=== PATIENT | female | born 1990 | race Hispanic/Latino ===

== ENCOUNTER 2020-12-03 17:24 | Inpatient (IN) | payer BC ==
[2020-12-03 18:04] VITALS: BMI 34.0
[2020-12-03] MEDS ORDERED: hydrALAZINE 20 MG/ML VIAL SLOW IVP PRN ×2 (18:23→19:19)
[2020-12-03 18:41] LABS: Bilirubin Neg (Negative); Blood, Urine 50 (Negative); Clarity Cloudy (Clear); Glucose, Urine (Dipstick) Normal (Negative); Ketone, Urine 50 mg/dL (Negative); Leukocyte 500 (Negative); Nitrite Positive (Negative); Protein, Urine (Dipstick) 30 mg/dl (Neg-Trace)
[2020-12-03 18:50] LABS: Bacteria/HPF 4+ HPF (None Seen); Squamous Epithelial 0-3 HPF (0-3); Transitional Epithelial 0-3 HPF (None Seen); WBC/HPF Greater Than 50 HPF (0-3)
[2020-12-03] MEDS ORDERED: Zolpidem Tartrate 5 MG TAB PO PRN (19:19)
[2020-12-03] MEDS ORDERED: Ondansetron PF 4 MG/2 ML Vial IVP PRN (19:19)
[2020-12-03] MEDS ORDERED: Sodium Chloride 0.9% 1,000 ML IV SCH ×2 (19:30→20:00)
[2020-12-03] MEDS ORDERED: Sodium Chloride 0.9% 100 ML ONE (19:40)
[2020-12-03 19:51] LABS: #Monocytes 0.7 10x3/uL (0.0-1.1); #Neutrophils 8.8 10x3/uL (1.5-8.4); %Basophils 0.2 % (0.0-2.0); %Eosinophils 0.1 % (0.0-6.0); %Lymphocytes 7.2 % (18.0-47.0); %Monocytes 6.7 % (0.0-10.0); Mean Corpuscular HGB CONC 34.1 g/dL (32.0-36.0); Mean Corpuscular Hemoglobin 31.7 pg (27.0-33.0); Mean Platelet Volume 10.1 fl (7.4-10.4); Platelet Count 178 10x3/uL (150-450); RBC Distribution Width 13.2 % (11.5-14.5); Red Blood Cell (RBC) Count 3.15 10x6/uL (3.90-5.03); White Blood Cell (WBC) Count 10.3 10x3/uL (3.5-10.5)
[2020-12-03] MEDS: cefTRIAXone\\ROCEPHIN 2 GM in Sodium Chloride 0.9% 100 ML IVPB SCH (20:50)
[2020-12-03] MEDS: Acetaminophen 500 MG TAB PO PRN (21:23)
[2020-12-04] MEDS: Acetaminophen 500 MG TAB PO PRN ×3 (05:05→21:12)
[2020-12-04] MEDS: Sodium Chloride 0.9% 1,000 ML IV SCH ×2 (08:05→11:19)
[2020-12-04 18:37] LABS: SARS-CoV-2 PCR by NAA Not Detected (NotDetected)
[2020-12-04] MEDS: cefTRIAXone\\ROCEPHIN 2 GM in Sodium Chloride 0.9% 100 ML IVPB SCH (20:55)
[2020-12-05] MEDS: Acetaminophen 500 MG TAB PO PRN (08:32)
[2020-12-05 08:33] VITALS: BP 100/74; TEMP 99.9
== END 2020-12-05 14:35 | disposition home or self-care (01) | DRG 833 ==
LOC: CSHLD/OP 17:24 → CSHLD 19:55
PROVIDERS: ADMIT Family Medicine; ATTEND Family Medicine
DX: O23.42 Unspecified infection of urinary tract in pregnancy, second trimester (principal); Z3A.26 26 weeks gestation of pregnancy
CPT/HCPCS: 76770; 81001; 85025; 87077; 87086; 87186; 99285; J0696; J2405; J3490; J7050; U0003; U0005

== ENCOUNTER 2021-02-13 07:31 | Outpatient (CLI) | payer BC ==
[2021-02-13 18:04] LABS: SARS-CoV-2 PCR by NAA Not Detected (NotDetected)
== END 2021-02-13 07:32 | disposition home or self-care (01) ==
LOC: CSHLAB 07:31
PROVIDERS: ATTEND Family Medicine
DX: Z01.812 Encounter for preprocedural laboratory examination (principal); Z20.822 Contact with and (suspected) exposure to COVID-19
CPT/HCPCS: U0003; U0005

== ENCOUNTER 2021-02-17 09:36 | Inpatient (IN) | payer BC ==
[2021-02-17] MEDS ORDERED: CEFAZOLIN 2 GM in Premix Bag 1 BAG IVPB SCH (10:52)
[2021-02-17] MEDS ORDERED: Promethazine HCl 25 MG/ML VIAL IM PRN ×2 (10:52→15:22)
[2021-02-17] MEDS ORDERED: Ondansetron PF 4 MG/2 ML Vial IVP PRN ×2 (10:52→15:22)
[2021-02-17] MEDS ORDERED: Bicitra 30 ML UDCUP PO PRN (10:52)
[2021-02-17] MEDS ORDERED: Famotidine/PF 20 mg/2ml Vial SLOW IVP PRN (10:52)
[2021-02-17] MEDS ORDERED: hydrALAZINE 20 MG/ML VIAL SLOW IVP PRN ×2 (10:52→15:22)
[2021-02-17 11:04] VITALS: BMI 29.9
[2021-02-17] MEDS: Lactated Ringer's 1,000 ML IV SCH ×2 (11:04→12:01)
[2021-02-17 11:24] LABS: Hemoglobin 11.6 g/dL (12.0-15.5); Mean Corpuscular Hemoglobin 30.9 pg (27.0-33.0); Mean Corpuscular Volume 90.7 fl (81.6-98.3); Mean Platelet Volume 10.7 fl (7.4-10.4); Platelet Count 211 10x3/uL (150-450); RBC Distribution Width 14.2 % (11.5-14.5); Red Blood Cell (RBC) Count 3.76 10x6/uL (3.90-5.03); White Blood Cell (WBC) Count 7.4 10x3/uL (3.5-10.5)
[2021-02-17 11:55] LABS: Hep B Surf Ag Non-Reactive S/CO (NonReactive); Syphilis Antibody Nonreactive (Nonreactive); Syphilis Antibody Index 0.03 S/CO (<1.00 Non-Reactive)
[2021-02-17 12:05] LABS: HBSAg Index 0.22 S/CO (0-0.99)
[2021-02-17] MEDS ORDERED: Morphine PF 10 MG/10 ML VIAL ONE (12:59)
[2021-02-17] MEDS ORDERED: Dexamethasone 4 mg/ml Vial ONE (12:59)
[2021-02-17] MEDS ORDERED: Phenylephrine 40 MG/NS 250 ML 250 ML ONE (12:59)
[2021-02-17] MEDS ORDERED: Ondansetron PF 4 MG/2 ML Vial ONE (12:59)
[2021-02-17] MEDS ORDERED: Oxytocin 10 UNITS/ML VIAL ONE (12:59)
[2021-02-17] MEDS ORDERED: Erythromycin Base 0.5% Oint 1 GM TUBE ONE (14:23)
[2021-02-17] MEDS ORDERED: Phytonadione Neonatal 1 MG/0.5 ML AMP ONE (14:23)
[2021-02-17] MEDS ORDERED: Bisacodyl 10 MG SUPP PR PRN (15:22)
[2021-02-17] MEDS ORDERED: diphenhydrAMINE 25 MG CAP PO PRN (15:22)
[2021-02-17] MEDS ORDERED: Boostrix 0.5 ML (Tdap) VIAL IM ONE (15:22)
[2021-02-17] MEDS ORDERED: Meperidine HCl/PF 25 MG/ML VIAL IM PRN (15:22)
[2021-02-17] MEDS ORDERED: NS w/ Oxytocin 30 units 500 ML IV SCH (15:22)
[2021-02-17] MEDS ORDERED: Lanolin Ointment 7 GM TUBE TOP PRN (15:22)
[2021-02-17] MEDS ORDERED: HYDROcodone/Acetaminophen 5/325 mg Tablet PO PRN (15:22)
[2021-02-17] MEDS ORDERED: NS w/ Oxytocin 30 units 500 ML ONE (15:33)
[2021-02-17] MEDS: Docusate Calcium (SURFAK) 240 MG CAP PO SCH (20:20)
[2021-02-17] MEDS: Ketorolac Tromethamine 30 MG/ML VIAL IVP SCH ×2 (20:20→21:48)
[2021-02-17] MEDS: Ferrous Sulfate 325 MG TAB PO SCH (20:21)
[2021-02-18] MEDS: Ketorolac Tromethamine 30 MG/ML VIAL IVP SCH ×2 (04:10→08:18)
[2021-02-18 05:38] LABS: Mean Corpuscular HGB CONC 34.6 g/dL (32.0-36.0); Mean Corpuscular Hemoglobin 30.5 pg (27.0-33.0); Mean Corpuscular Volume 88.3 fl (81.6-98.3); Mean Platelet Volume 10.2 fl (7.4-10.4); Platelet Count 205 10x3/uL (150-450); RBC Distribution Width 13.9 % (11.5-14.5); Red Blood Cell (RBC) Count 3.93 10x6/uL (3.90-5.03); White Blood Cell (WBC) Count 11.4 10x3/uL (3.5-10.5)
[2021-02-18] MEDS: Docusate Calcium (SURFAK) 240 MG CAP PO SCH ×2 (08:13→21:14)
[2021-02-18] MEDS: Ferrous Sulfate 325 MG TAB PO SCH ×2 (08:13→21:16)
[2021-02-18] MEDS: Prenatal Vitamin 1 TAB PO SCH (08:13)
[2021-02-18] MEDS: Simethicone Chewable 80 MG TAB PO PRN (11:38)
[2021-02-18] MEDS: HYDROcodone/Acetaminophen 5/325 mg Tablet PO PRN ×2 (11:38→21:15)
[2021-02-18] MEDS: Ibuprofen 800 MG TAB PO SCH ×2 (14:27→21:14)
[2021-02-19] MEDS: Ibuprofen 800 MG TAB PO SCH ×2 (05:56→13:34)
[2021-02-19] MEDS: Ferrous Sulfate 325 MG TAB PO SCH (07:55)
[2021-02-19] MEDS: Docusate Calcium (SURFAK) 240 MG CAP PO SCH (09:11)
[2021-02-19] MEDS: Prenatal Vitamin 1 TAB PO SCH (09:11)
[2021-02-19] MEDS: HYDROcodone/Acetaminophen 5/325 mg Tablet PO PRN ×2 (09:12→13:34)
[2021-02-19] MEDS: Simethicone Chewable 80 MG TAB PO PRN (09:12)
[2021-02-19 12:03] VITALS: BP 115/69; TEMP 98.4
== END 2021-02-19 15:20 | disposition home or self-care (01) | DRG 788 ==
LOC: CSHLD 09:36 → CSHPP 17:36
PROVIDERS: ADMIT Family Medicine; ATTEND Family Medicine
PROC: 10D00Z1 Extraction of Products of Conception, Low, Open Approach (ICD-10-PCS; principal; 2021-02-18)
DX: O34.211 Maternal care for low transverse scar from previous cesarean delivery (principal); Z3A.39 39 weeks gestation of pregnancy; Z37.0 Single live birth
CPT/HCPCS: 36415; 51702; 85027; 86780; 86850; 86900; 86901; 87340; J0690; J1100; J1885; J2274; J2405; J2550; J2590; J7120; S0028

== ENCOUNTER 2023-05-26 10:55 | Day surgery (SDC) | payer OTHER ==
[2023-05-26 11:39] VITALS: BMI 29.2
== END 2023-05-26 11:58 | disposition home or self-care (01) ==
LOC: CSHLD/OP 10:55
PROVIDERS: ATTEND Family Medicine
DX: O36.8130 Decreased fetal movements, third trimester, not applicable or unspecified (principal); Z3A.31 31 weeks gestation of pregnancy; Z79.899 Other long term (current) drug therapy